=== PATIENT | female | born 1955 | race Caucasian/White ===

== ENCOUNTER → 2016-09-27 | Outpatient (CLI) | payer MEDICAID ==
--- NOTE | ~2016-09-27 | MR2 ---
[facility] A Service of [facility] RADIOLOGY TEXT RESULTS PATIENT: MASHA POWELL LOCATION: [facility] : 53 UNIT #: [id number] AGE: [address]: Bora Ann MD SEX: F ORDER DR: [id number] [address] [address] [id number] O MR#: [id number] Acc #: [id number] NAME: MASHA POWELL : 1955 SEX: F STUDY DATE/TIME: 09/27/2016 14:48 UNIT: [facility] ROOM: STUDY DESCRIPTION: MR Abdomen WWo Cont Attending Physician: Bora Ann M.D. Referring Physician: Bora Ann M.D. Ordering Physician: Bora Ann M.D. [facility] REPORT This report is preliminary unless electronic signature is present. EXAM MRI abdomen without and with IV gadolinium, MRCP HISTORY Biliary dilatation on recent CT. Epigastric pain and nausea for 3 months. FINDINGS MRI abdomen was performed without and with IV gadolinium and MRCP was performed, demonstrating mild dilatation of the common bile duct measuring 8 mm in diameter, corresponding to similar finding on ultrasound 08/03/2016. No intraductal filling defect. No intrahepatic biliary ductal dilatation and no pancreatic ductal dilatation. No extrinsic compression. Incidental subcentimeter hepatic cyst in the inferior margin of the medial segment left hepatic lobe. Gallbladder is normal. Prominent right hepatic lobe measuring 21.4 cm in length. The spleen, pancreas, kidneys, and adrenal glands are unremarkable. No ascites. IMPRESSION 1. Mild extrahepatic biliary ductal dilatation measuring 8 mm in the - to distal common bile duct corresponds to a similar finding on ultrasound 08/03/2016. 2. No intraductal filling defects. No additional biliary ductal dilatation and no pancreatic ductal dilatation. 3. Incidental subcentimeter hepatic cyst in the medial segment left hepatic lobe. 4. Prominent right hepatic lobe extending into the right pelvis and measuring just over 21 cm in length. Dictated by... To Alberto M.D. [facility] A Service of [facility] RADIOLOGY TEXT RESULTS PATIENT: MASHA POWELL LOCATION: [facility] : 53 UNIT #: [id number] AGE: [address]: Bora Ann MD SEX: F ORDER DR: THIS IS AN ELECTRONICALLY VERIFIED REPORT To lAberto M.D. at 09/29/2016 11:20 PM DFL/pcl TD: 09/28/2016 21:32 JOB #: [id number] MRI CENTER REPORT Page 1 of 1
== END | disposition home or self-care (01) ==
LOC: SMRI 13:23
DX: R93.5 Abnormal findings on diagnostic imaging of other abdominal regions, including retroperitoneum (principal); R93.2 Abnormal findings on diagnostic imaging of liver and biliary tract
CPT/HCPCS: 74183; A9581